=== PATIENT | male | born 1960 | race American Indian/Alaskan Native ===

== ENCOUNTER 2021-11-13 17:03 | Inpatient (IN) | payer MEDICAID ==
[2021-11-13] MEDS ORDERED: SODIUM CHLORIDE 0.9% 500 ML 500 ML IV ONE ×2 (18:11→21:41)
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
[2021-11-13 19:28] LABS: Eosinophils # (Auto) 0.1 K/mm3 (0.0-0.4); Eosinophils % (Auto) 2.1 % (0.0-4.3); Hematocrit 34.5 % (35.5-45.6); Hemoglobin 11.3 gm/dl (11.8-15.2); INR 1.04 (0.87-1.13); Lymphocytes % (Auto) 23.2 % (13.4-35.0); Mean Corpuscular HGB Conc 33 % (32-34); Mean Corpuscular Volume 92 fl (84-94); Monocytes # (Auto) 0.5 K/mm3 (0.0-0.8); Monocytes % (Auto) 12.7 % (0.0-7.3); Platelet Count 388 K/mm3 (140-440); Red Blood Count 3.74 M/mm3 (3.65-5.03); Red Cell Distribution Width 13.8 % (13.2-15.2)
[2021-11-13 19:29] LABS: Creatine Kinase MB < 1.0 ng/mL (0.0-4.0); Partial Thromboplastin Time 37.1 Sec. (24.2-36.6)
[2021-11-13 19:30] LABS: Alanine Aminotransferase 8 units/L (7-56); Albumin 2.5 g/dL (3.9-5); Basophils % (Auto) 0.9 % (0.0-1.8); Blood Urea Nitrogen 19 mg/dL (9-20); Calcium 8.8 mg/dL (8.4-10.2); Hemolysis Index 4
[2021-11-13 19:42] LABS: BUN/Creatinine Ratio 3
[2021-11-13 19:43] LABS: Chol/HDL Ratio 3.93 %; HDL Cholesterol 30 mg/dL (40-59); LDL Cholesterol,Direct 67 mg/dL (50-130)
[2021-11-13] MEDS ORDERED: dilTIAZem 25 MG/5 ML INJ IV ONE ×2 (20:37→21:46)
[2021-11-13] MEDS ORDERED: SODIUM CHLORIDE 0.9% 500 ML 500 ML ONE (21:40)
[2021-11-13] MEDS ORDERED: MIDAZOLAM 5 MG/5 ML INJ MDV IV NR (23:00)
[2021-11-13] MEDS ORDERED: ADENOSINE 6 MG/2 ML INJ IV ONE ×2 (23:15→23:34)
[2021-11-13] MEDS ORDERED: ADENOSINE 6 MG/2 ML INJ ONE (23:17)
[2021-11-14] MEDS ORDERED: traMADol 50 MG TAB PO PRN (00:09)
[2021-11-14] MEDS ORDERED: ACETAMINOPHEN 325 MG TAB PO PRN (00:09)
[2021-11-14] MEDS ORDERED: MORPHINE 4 MG/1 ML INJ IV PRN (00:09)
[2021-11-14] MEDS ORDERED: NITROGLYCERIN 0.4 MG TAB SUBL SL PRN (00:09)
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
[2021-11-14] MEDS: AMIODARONE 200 MG TAB PO SCH ×3 (00:55→21:53)
[2021-11-14] MEDS ORDERED: HEPARIN 5,000 UNIT/1 ML VIAL SUB-Q SCH (10:00)
[2021-11-14 10:29] LABS: Calcium 8.7 mg/dL (8.4-10.2)
[2021-11-14 10:46] LABS: Basophils % (Auto) 0.7 % (0.0-1.8); Eosinophils # (Auto) 0.1 K/mm3 (0.0-0.4); Eosinophils % (Auto) 1.5 % (0.0-4.3); Hematocrit 31.1 % (35.5-45.6); Hemoglobin 10.3 gm/dl (11.8-15.2); Lymphocytes # (Auto) 0.8 K/mm3 (1.2-5.4); Lymphocytes % (Auto) 17.5 % (13.4-35.0); Mean Corpuscular HGB Conc 33 % (32-34); Mean Corpuscular Volume 92 fl (84-94); Monocytes # (Auto) 0.6 K/mm3 (0.0-0.8); Monocytes % (Auto) 12.9 % (0.0-7.3); Platelet Count 363 K/mm3 (140-440); Red Blood Count 3.38 M/mm3 (3.65-5.03); Red Cell Distribution Width 14.1 % (13.2-15.2)
[2021-11-14] MEDS: PANTOPRAZOLE 40 MG TAB PO SCH (11:00)
[2021-11-14] MEDS: METOPROLOL TARTRATE 25 MG TAB PO SCH ×2 (13:08→21:53)
--- NOTE | 2021-11-14 14:24 | Progress Note ---
Assessment and Plan Assessment and plan: History of present illness: 61 yo M with history of ESRD on dialysis and hypertension was brought to the emergency room from dialysis center when he was noticed to have tachycardia shortly after he completed his dialysis this evening. Pt denies any symptoms at this time. No other modifying or associated factors. In the emergency room patient is found to have SVT.patient was given adenosine 6 mg IV x 1 initial with no response-- then repeated 12 mg IV push x 1-- and was a ble to break the rhythm for about a minute before it went up again to 147 bpm but sinus-- At this point Webmethods Consultant Dr Wang consulted who suggested using amiodarone 200 mg p.o. x1 and 2 other same twice daily until we are able to figure out what is causing the dysrhythmia. He also suggested using amiodarone 150 mg IV push in case the patient went back into SVT. He also mentioned that at the nursing could also be repeated as well. Assessment and Plan: #SVT (supraventricular tachycardia) #Chest pain #Tachyarrythmia - s/p adenosine 6 mg x 1 ,12 mg x 1. - continuous telemetry - patient converted to NSR - troponin 0.050, 0.043. - thyroid panel unremarkable. - potassium noted to be elevated - ECHO pending - Aspirin 325 mg p.o. daily. - Lipitor 40 mg p.o. daily. - Amiodarone 200 mg p.o. twice daily. - metoporolol 12.5 mg po bid - nitrostat prn chest pain - d/w cardiology, plan for NM stress test tomorrow AM. NPO midnight # Essential Hypertension - metoprolol as above -Hydralazine 10 mg IV every 6 hours as needed. #End-stage renal disease on hemodialysis #Hyperkalemia #Hyponatremia - Patient just had dialysis on 11/13 - avoid nephrotoxins, renally adjust meds - potassium 5.7 on admission, now 3.6 - follow electrolytes on serial bmp - consultation placed for nephrology #Nicotine Abuse +15 min smoking/nicotine abuse cessation counseling. Advised on quitting strategies as well as benefits to overall health. #Advance care planning Disease education conducted, care plan discussed, diagnoses discussed, prognosis discussed, patient is full code, patient acknowledges understanding and agree with care plan, discussed about patient clinical course and answered all quest ions to satisfaction. +30 minutes. +30 minutes. Dispo: Tele, plan for discharge tomorrow if stress test negative. History Interval history: No acute complaints this AM. Hospitalist Physical - Physical exam Narrative exam: Physical Exam: VITAL SIGNS: Reviewed. GENERAL: The patient appears normally developed, Vital signs as documented. HEAD: No signs of head trauma. EYES: Pupils are equal. Extraocular motions intact. EARS: Hearing grossly intact. MOUTH: Oropharynx is normal. NECK: No adenopathy, no JVD. CHEST: Chest with clear breath sounds bilaterally. No wheezes, rales, or rhonchi. CARDIAC: Regular rate and rhythm. S1 and S2, without murmurs, gallops, or r ubs. VASCULAR: No Edema. Peripheral pulses normal and equal in all extremities. ABDOMEN: Soft, non tender and non distended. No rebound or guarding, and no masses palpated. Bowel Sounds normal. MUSCULOSKELETAL: Good range of motion of all major joints. Extremities without clubbing, cyanosis or edema. NEUROLOGIC EXAM: Alert and oriented x 4. no focal sensory or strength deficits. PSYCHIATRIC: Mood normal. SKIN: detail exam as documented in skin assessment - Constitutional Vitals: Temp Pulse Resp BP Pulse Ox 97.5 F L 103 H 20 125/71 98 11/14/21 12:16 11/14/21 12:16 11/14/21 02:45 11/14/21 12:16 11/14/21 12:16 General appearance: Present: no acute distress, well-nourished HEART Score - HEART Score Troponin: Troponin T 0.043 ng/mL (0.00-0.029) H 11/14/21 09:32 Results - Labs CBC & Chem 7: 11/14/21 14:54 11/14/21 14:54 Labs: Laboratory Last Values WBC 4.8 K/mm3 (4.5-11.0) 11/14/21 09:32 RBC 3.38 M/mm3 (3.65-5.03) L 11/14/21 09:32 Hgb 10.3 gm/dl (11.8-15.2) L 11/14/21 09:32 Hct 31.1 % (35.5-45.6) L 11/14/21 09:32 MCV 92 fl (84-94) 11/14/21 09:32 MCH 31 pg (28-32) 11/14/21 09:32 MCHC 33 % (32-34) 11/14/21 09:32 RDW 14.1 % (13.2-15.2) 11/14/21 09:32 Plt Count 363 K/mm3 (140-440) 11/14/21 09:32 Lymph % (Auto) 17.5 % (13.4-35.0) 11/14/21 09:32 Payne % (Auto) 12.9 % (0.0-7.3) H 11/14/21 09:32 Eos % (Auto) 1.5 % (0.0-4.3) 11/14/21 09:32 Baso % (Auto) 0.7 % (0.0-1.8) 11/14/21 09:32 Lymph # (Auto) 0.8 K/mm3 (1.2-5.4) L 11/14/21 09:32 Payne # (Auto) 0.6 K/mm3 (0.0-0.8) 11/14/21 09:32 Eos # (Auto) 0.1 K/mm3 (0.0-0.4) 11/14/21 09:32 Baso # (Auto) 0.0 K/mm3 (0.0-0.1) 11/14/21 09:32 Seg Neutrophils % 67.4 % (40.0-70.0) 11/14/21 09:32 Seg Neutrophils # 3.2 K/mm3 (1.8-7.7) 11/14/21 09:32 PT 15.1 Sec. (12.2-14.9) H 11/13/21 18:22 INR 1.04 (0.87-1.13) 11/13/21 18:22 APTT 37.1 Sec. (24.2-36.6) H 11/13/21 18:22 Sodium 136 mmol/L (137-145) L 11/14/21 09:32 Potassium 3.6 mmol/L (3.6-5.0) 11/14/21 09:32 Chloride 95.1 mmol/L (98-107) L 11/14/21 09:32 Carbon Dioxide 30 mmol/L (22-30) 08/09/22 09:32 Anion Gap 15 mmol/L 11/14/21 09:32 BUN 23 mg/dL (9-20) H 11/14/21 09:32 Creatinine 7.5 mg/dL (0.8-1.3) H 11/14/21 09:32 Estimated GFR 9 ml/min 11/14/21 09:32 BUN/Creatinine Ratio 3 % 11/14/21 09:32 Glucose 109 mg/dL (75-100) H 11/14/21 09:32 Calcium 8.7 mg/dL (8.4-10.2) 11/14/21 09:32 Magnesium 2.00 mg/dL (1.7-2.3) 11/13/21 18:22 Total Bilirubin 0.50 mg/dL (0.1-1.2) 11/13/21 18:22 AST 18 units/L (5-40) 11/13/21 18:22 ALT 8 units/L (7-56) 11/13/21 18:22 Alkaline Phosphatase 53 units/L (35-129) 11/13/21 18:22 Total Creatine Kinase 64 units/L (55-170) 11/13/21 18:22 CK-MB (CK-2) < 1.0 ng/mL (0.0-4.0) 11/13/21 18:22 CK-MB (CK-2) Rel Index 1.5 (0-4) 11/13/21 18:22 Troponin T 0.043 ng/mL (0.00-0.029) H 11/14/21 09:32 Total Protein 7.6 g/dL (6.3-8.2) 11/13/21 18:22 Albumin 2.5 g/dL (3.9-5) L 11/13/21 18:22 Albumin/Globulin Ratio 0.5 % 11/13/21 18:22 Triglycerides 96 mg/dL (2-149) 11/13/21 18:22 Cholesterol 118 mg/dL (50-199) 11/13/21 18:22 LDL Cholesterol Direct 67 mg/dL (50-130) 11/13/21 18:22 HDL Cholesterol 30 mg/dL (40-59) L 11/13/21 18:22 Cholesterol/HDL Ratio 3.93 % 11/13/21 18:22 Gallegos/IV: Voiding Method Urinal Active Medications - Current Medications Current Medications: Generic Name Dose Route Start Last Admin Trade Name Freq PRN Reason Stop Dose Admin Acetaminophen 650 mg 11/14/21 00:09 Acetaminophen 325 Mg Tab PO Q6H PRN Pain, Mild (1-3) Amiodarone HCl 200 mg 11/14/21 01:00 11/14/21 11:00 Amiodarone 200 Mg Tab PO 200 mg BID EVERARDO Administration Apixaban 5 mg 11/14/21 22:00 Apixaban 5 Mg Tab PO Q12HR [facility] Protocol Aspirin 325 mg 11/15/21 10:00 Aspirin Ec 325 Mg Tab PO QDAY [facility] Atorvastatin Calcium 40 mg 11/14/21 22:00 Atorvastatin 40 Mg Tab PO QHS [facility] Metoprolol Tartrate 12.5 mg 11/14/21 13:00 11/14/21 13:08 Metoprolol Tartrate 25 Mg Tab PO 12.5 mg BID [facility] Administration Morphine Sulfate 2 mg 11/14/21 00:09 Morphine 4 Mg/1 Ml Inj IV Q5MIN PRN Chest Pain unrelieved by NTG Nitroglycerin 0.4 mg 11/14/21 00:09 Nitroglycerin 0.4 Mg Tab Subl SL Q5M PRN Chest Pain Pantoprazole Sodium 40 mg 11/14/21 10:00 11/14/21 11:00 Pantoprazole 40 Mg Tab PO 40 mg QDAY [facility] Administration Sodium Chloride 10 ml 11/14/21 00:09 Sodium Chloride 0.9% 10 Ml Flush Syringe IV PRN PRN LINE FLUSH Tramadol HCl 50 mg 11/14/21 00:09 Tramadol 50 Mg Tab PO Q6H PRN Pain, Moderate (4-6)
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
[2021-11-14 15:28] LABS: Hematocrit 31.1 % (35.5-45.6); Hemoglobin 10.3 gm/dl (11.8-15.2); Mean Corpuscular HGB Conc 33 % (32-34); Mean Corpuscular Volume 92 fl (84-94); Platelet Count 352 K/mm3 (140-440); Red Blood Count 3.38 M/mm3 (3.65-5.03); Red Cell Distribution Width 13.8 % (13.2-15.2)
[2021-11-14 18:45] LABS: INR 1.08 (0.87-1.13)
[2021-11-14] MEDS: APIXABAN 5 MG TAB PO SCH (21:54)
[2021-11-15] MEDS ORDERED: REGADENOSON 0.4 MG/5 ML INJ IV ONE (08:06)
[2021-11-15] MEDS ORDERED: ASPIRIN EC 325 MG TAB PO SCH (10:00)
--- NOTE | 2021-11-15 10:55 | Electrocardiograph Report ---
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
--- NOTE | 2021-11-15 11:05 | Electrocardiograph Report ---
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
[2021-11-15] MEDS: AMIODARONE 200 MG TAB PO SCH (11:20)
[2021-11-15] MEDS: PANTOPRAZOLE 40 MG TAB PO SCH (11:20)
[2021-11-15] MEDS: APIXABAN 5 MG TAB PO SCH (11:20)
[2021-11-15] MEDS: METOPROLOL TARTRATE 25 MG TAB PO SCH (11:21)
--- NOTE | 2021-11-15 11:35 | Nuclear Medicine Report ---
APPROVED REPORT Exam: Nuclear Stress Test Indication: Chest pain [facility] Room #: A475 Ht: 5 ft 9 in Wt: 157 lbs BSA: 1.86 m2 HR: 91 bpmBP: 113/77 mmHgBMI: 23.18 Rhythm: Sinus Rhythm Stress Test Details Stress Test: Pharmacologic stress testing performed using 0.4 mg of regadenoson per 5 mL given IV over 10 seconds. Reason for pharmacologic stress test: physical limitation. HR Resting HR: 91 bpm Max HR Achieved: 111 bpm Max Heart Rate (APMHR): 158 bpm Target HR (85% APMHR): 134 bpm % of APMHR: 70 Recovery HR: 100 bpm HR response to stress: Normal HR response to stress BP Resting BP: 113/70 mmHg Max BP: 126/77 mmHg Recovery BP: 118/74 mmHg BP response to stress: Normal blood pressure response to stress. ECG Resting ECG: Sinus Rhythm Stress ECG: Sinus Tachycardia ST Change: None Arrhythmia: None Recovery ECG: Sinus Rhythm Recovery ST Change: None Recovery Arrhythmia: APC Clinical Reason for Termination: Completed protocol Stress Symptoms: None NM EXAM: Myocardial Perfusion REST/STRESS Imaging Protocol: Rest Tc-99m/Stress Tc-99m 1 day Resting Data Rest SPECT myocardial perfusion imaging was performed in supine position 45 minutes following the intravenous injection of 10 mCi of Tc-99m Myoview. Time of rest injection: 0700 Date: 11/15/2021 Pharmacologic Stress Pharmacologic stress test was performed by injecting Regadenoson 0.4 mg IV push followed by the intravenous injection of 28 mCi of Tc-99m Myoview. Time of stress injection: 09:56:56 Date: 11/15/2021 Gated Stress SPECT was performed 30 minutes after stress injection. The images were gated to evaluate regional wall motion and calculate left ventricular ejection fraction. Study Data TID = 0.80. Perfusion Wall Motion LVEF 52%. Nuclear Conclusion ECG Findings: negative for ischemia Clinical Findings: negative for ischemia Nuclear Findings: negative for ischemia Exercise Capacity: not assessed Left Ventricular Function: normal Risk Study: low Normal study. No scintigraphic evidence for myocardial ischemia or scar.
--- NOTE | 2021-11-15 14:49 | Progress Note ---
Assessment and Plan Patient is a 61-year-old male with past medical history of end-stage renal disease on hemodialysis and hypertension who reports to the ED from his dialysis center after being found tachycardic and found to be in atrial flutter w/RVR Atrial flutter with RVR End-stage renal disease on hemodialysis- Hypertension Pericardial effusion Echo 11/14/2021-EF 50 to 55%. Mild diastolic dysfunction is present impaired laxation pattern. Right ventricular systolic function is normal. Trace tricuspid regurgitation. Large circumferential pericardial effusion with no signs of hemodynamic compromise noted Lexiscan MPI stress test 11/15/2021-no scintigraphic evidence of myocardial ischemia or scar Plan: Continue amiodarone 200 mg p.o. twice daily Will increase to metoprolol 25 mg p.o. twice daily Continue Eliquis for anticoagulation Echo shows large pericardial effusion no signs of hemodynamic instability. Due to large pericardial effusion recommend dialysis session to help remove fluid. Per conversation with staff patient to be discharged and go to dialysis Patient will need follow-up echo to evaluate pericardial effusion Cardiac status otherwise stable for discharge Patient has a follow-up echo scheduled on 11/30/2021 at 10 AM in our [place] location. Phone #[phone] Patient has a follow-up appoint with Dr. Aponte, [facility] hemodialysis patient care specialist on 12/28/2021 at 2 PM in our [place] location. Phone #[phone] Patient seen in conjunction with Dr. Aponte who agrees with this plan of care - Patient Problems (1) Atrial flutter with rapid ventricular response Current Visit: Yes Status: Acute (2) End-stage renal disease on hemodialysis Current Visit: Yes Status: Acute (3) Hypertension Current Visit: Yes Status: Acute (4) Tobacco abuse Current Visit: Yes Status: Acute Subjective Date of service: 11/15/21 Principal diagnosis: aflutter with RVR Interval history: Patient for stress test this a.m. Patient has no cardiac complaints Sinus 80s to 90s with episodes of a flutter into the 140s overnight Objective Vital Signs Temp Pulse Resp BP Pulse Ox 11/15/21 12:00 81 98 11/15/21 10:08 126/74 11/15/21 10:06 118/75 11/15/21 10:05 123/78 11/15/21 10:02 123/76 11/15/21 09:37 120/70 11/15/21 09:27 113/77 11/15/21 07:54 98.6 F 92 H 16 116/69 100 11/15/21 03:48 97.9 F 88 18 106/67 97 11/14/21 23:01 98.5 F 81 14 104/59 99 11/14/21 19:20 99.4 F 91 H 18 122/73 98 11/14/21 16:08 98.3 F 86 121/70 98 - Physical Examination General: No Apparent Distress HEENT: Positive: Normocephaly Neck: Positive: trachea midline Cardiac: Positive: Reg Rate and Rhythm Lungs: Positive: Normal Breath Sounds Neuro: Positive: Grossly Intact Abdomen: Positive: Soft Skin: Negative: Rash, Suspicious Lesions, Ulceration Extremities: Present: upper extr. pulses. Absent: edema - Labs and Meds Coagulation 11/14/21 Range/Units 14:54 PT 15.5 H (12.2-14.9) Sec. INR 1.08 (0.87-1.13) APTT 36.0 (24.2-36.6) Sec. CBC 11/14/21 Range/Units 14:54 WBC 4.6 (4.5-11.0) K/mm3 RBC 3.38 L (3.65-5.03) M/mm3 Hgb 10.3 L (11.8-15.2) gm/dl Hct 31.1 L (35.5-45.6) % Plt Count 352 (140-440) K/mm3 Comprehensive Metabolic Panel 11/14/21 Range/Units 14:54 Creatinine 7.6 H (0.8-1.3) mg/dL - Imaging and Cardiology Nuclear stress test: report reviewed Echo: report reviewed - Telemetry EKG Rhythm: Sinus Rhythm - EKG Sinus rhythms and dysrhythmias: sinus rhythm
--- NOTE | 2021-11-15 15:50 | Discharge Summary ---
Providers - Providers Date of Admission: 11/14/21 00:09 Date of discharge: 11/15/21 Attending physician: NEELA PARRY MD 11/14/21 Consult to Cardiac Rehabilitation [CONS] Routine Reason For Exam: Phase I 11/14/21 00:09 Consult to Cardiology [CONS] Routine Consulting Provider: RUDDY WANG Reason For Exam: svt Primary care physician: DIRECTOR OF PHYSICAL EDUCATION Hospitalization Reason for admission: palpitations Condition: Stable Hospital course: History of present illness: 61 yo M with history of ESRD on dialysis and hypertension was brought to the emergency room from dialysis center when he was noticed to have tachycardia shortly after he completed his dialysis this evening. Pt denies any symptoms at this time. No other modifying or associated factors. In the emergency room patient is found to have SVT.patient was given adenosine 6 mg IV x 1 initial with no response-- then repeated 12 mg IV push x 1-- and was able to break the rhythm for about a minute before it went up again to 147 bpm but sinus-- At this point Pleat Patternmaker Dr Wang consulted who suggested using amiodarone 200 mg p.o. x1 and 2 other same twice daily until we are able to figure out what is causing the dysrhythmia. He also suggested using amiodarone 150 mg IV push in case the patient went back into SVT. He also mentioned that at the nursing could also be repeated as well. Hospital Course: Patient was admitted for tachycardia noted after hemodialysis. He was found to be in atrial flutter with RVR. Patient had self converted upon admission. He is currently being managed with amiodarone, metoprolol. Echo demonstrates large pericardial effusion however there is no tamponade physiology per conversation with cardiology. He is hemodynamically stable and has no acute complaints at the time of discharge. We will recommend that the patient follow-up with his out patient finance assistant and discuss fluid removal. I have already coordinated with case management and outpatient dialysis center to have dialysis appointment ready for tomorrow at 11 AM. Patient is stable for discharge. Prescriptions for amiodarone, metoprolol, Eliquis sent to [facility] pharmacy in [place], [place]. He is advised to follow up with outpatient cardiology. Assessment and Plan: #Atrial flutter with rapid ventricular response-resolved #Chest pain #Tachyarrythmia - resolved #Pericardial effusion - s/p adenosine 6 mg x 1 ,12 mg x 1. - continuous telemetry - patient converted to NSR - troponin 0.050, 0.043. - thyroid panel unremarkable. - potassium noted to be elevated - ECHO: normal study except pericardial effusion noted, no tamponade physiology. - NM stress test : negative - Aspirin 325 mg p.o. daily. - Lipitor 40 mg p.o. daily. - Amiodarone 200 mg p.o. twice daily. - metoporolol 12.5 mg po bid - nitrostat prn chest pain - d/w cardiology, plan for NM stress test tomorrow AM. NPO midnight # Essential Hypertension - metoprolol as above -Hydralazine 10 mg IV every 6 hours as needed. #End-stage renal disease on hemodialysis #Hyperkalemia #Hyponatremia - Patient just had dialysis on 11/13 - avoid nephrotoxins, renally adjust meds - potassium 5.7 on admission, now 3.6 - follow electrolytes on serial bmp - consultation to be placed for nephrology if needed #Nicotine Abuse +15 min smoking/nicotine abuse cessation counseling. Advised on quitting strategies as well as benefits to overall health. #Advance care planning Disease education conducted, care plan discussed, diagnoses discussed, prognosis discussed, patient is full code, patient acknowledges understanding and agree with care plan, discussed about patient clinical course and answered all questions to satisfaction. +30 minutes. +30 minutes. Disposition: HOME / SELF CARE / HOMELESS Final Discharge Diagnosis (Prints w/discharge instructions): Atrial flutter with rapid ventricular response, pericardial effusion, ESRD on hemodialysis Time spent for discharge: 35 Core Measure Documentation - Palliative Care Palliative Care/ Comfort Measures: Not Applicable - Core Measures Any of the following diagnoses?: none Exam - Physical Exam Narrative exam: Physical Exam: VITAL SIGNS: Reviewed. GENERAL: The patient appears normally developed, Vital signs as documented. HEAD: No signs of head trauma. EYES: Pupils are equal. Extraocular motions intact. EARS: Hearing grossly intact. MOUTH: Oropharynx is normal. NECK: No adenopathy, no JVD. CHEST: Chest with clear breath sounds bilaterally. No wheezes, rales, or rhonchi. CARDIAC: Regular rate and rhythm. S1 and S2, without murmurs, gallops, or rubs. VASCULAR: No Edema. Peripheral pulses normal and equal in all extremities. ABDOMEN: Soft, non tender and non distended. No rebound or guarding, and no masses palpated. Bowel Sounds normal. MUSCULOSKELETAL: Good range of motion of all major joints. Extremities without clubbing, cyanosis or edema. NEUROLOGIC EXAM: Alert and oriented x 4. no focal sensory or strength deficits. PSYCHIATRIC: Mood normal. SKIN: detail exam as documented in skin assessment - Constitutional Vitals: Temp Pulse Resp BP Pulse Ox 98.6 F 81 16 126/74 98 11/15/21 07:54 11/15/21 12:00 11/15/21 07:54 11/15/21 10:08 11/15/21 12:00 Plan Follow up with: PRIMARY CARE, [Primary Care Provider] - 3-5 Days
[2021-11-15 16:31] VITALS: BP 118/69
[2021-11-15] MEDS ORDERED: METOPROLOL TARTRATE 25 MG TAB PO SCH (22:00)
== END 2021-11-15 17:41 | disposition home or self-care (01) | DRG 308 ==
LOC: ED 17:03 → 4A 11-14 00:09
PROVIDERS: ADMIT Hospitalist; ATTEND Internal Medicine
DX: I48.92 Unspecified atrial flutter (principal); N18.6 End stage renal disease; I47.1 Supraventricular tachycardia; E87.1 Hypo-osmolality and hyponatremia; F17.200 Nicotine dependence, unspecified, uncomplicated; I12.0 Hypertensive chronic kidney disease with stage 5 chronic kidney disease or end stage renal disease; Z71.6 Tobacco abuse counseling; E87.5 Hyperkalemia; E87.0 Hyperosmolality and hypernatremia; I31.3 Pericardial effusion (noninflammatory); Z82.49 Family history of ischemic heart disease and other diseases of the circulatory system; Z99.2 Dependence on renal dialysis
CPT/HCPCS: 36415; 78452; 80048; 80053; 80061; 82550; 82553; 82565; 83735; 84484; 85025; 85027; 85610; 85730; 93005; 93017; 93306; G0378; J3490; A9502; C8929; J0153; J1644; J2250; J2785; J7040